=== PATIENT | male | born 1945 | race Caucasian/White ===

== ENCOUNTER → 2025-02-22 12:36 | Outpatient (REF) | payer MEDICARE, SELFPAY | LOC: RAD 12:36 | PROVIDERS: ATTENDING PHYSICIAN Thoracic Surgery (Cardiothoracic Vascular Surgery); FAMILY PHYSICIAN Internal Medicine | DX: I72.9 Aneurysm of unspecified site (principal) | CPT/HCPCS: 93926 ==